=== PATIENT | male | born 1965 | race Caucasian/White ===

== ENCOUNTER 2017-12-24 16:25 | Emergency (ER) | payer OTHER ==
[~2017-12-24] VITALS: Ht 172.7 cm; Wt 86.2 kg
[2017-12-24] MEDS ORDERED: NACL 0.9% 1,000 ML IV ONE (16:27)
[2017-12-24 16:30] VITALS: BP_SYST 163
[2017-12-24] MEDS ORDERED: ONDANSETRON HCL 4 MG/2 ML VIAL IVP ONE (16:30)
[2017-12-24] MEDS ORDERED: MORPHINE 4 MG/ML INJ. SYRINGE IVP ONE ×2 (16:30→17:30)
--- NOTE | 2017-12-24 16:37 | NUR ---
Note shannan in ED - 12/24/17 at 1640 by KING Patient to ER bed 6 to [facility]ckenzie for evaluation. Side rails up. Report given to Marylou.
--- NOTE | 2017-12-24 16:39 | NUR ---
Patient to ER bed 6 to gown for evaluation. Side rails up. Report given to Marylou PÉREZ.
--- NOTE | 2017-12-24 16:40 | NUR ---
Pt complains of lower back pain that radiates to abdomen for two days. Pt states he has not had a bowel movement in two days. Pt denies pain/burning upon urination. N/V for two days, unable to keep anything down. denies fever. No other injuries/complaints per patient or noted. at bedside.
--- NOTE | 2017-12-24 16:45 | NUR ---
ER Dr. Robison at bedside examining patient.
--- NOTE | 2017-12-24 16:53 | NUR ---
Medications were given, pt tolerated well. No adverse reaction, will continue to monitor.
--- NOTE | 2017-12-24 17:00 | NUR ---
xray at patient bedside. Pt tolerated well.
--- NOTE | 2017-12-24 17:10 | NUR ---
Patient to radiology for CT scan in stable condition via gurney.
[2017-12-24 17:11] LABS: BASOPHILS % (AUTO) 0.3 % (0.0-2.0); EOSINOPHILS # (AUTO) 0.1 K/uL (0.0-0.4); EOSINOPHILS % (AUTO) 0.5 % (0.0-4.0); HEMOGLOBIN 13.1 g/dL (14.0-18.0); LYMPHOCYTES # (AUTO) 1.1 K/uL (1.0-5.5); LYMPHOCYTES % (AUTO) 11.1 % (20.5-51.5); MEAN CORPUSCULAR HEMOGLOBIN 21 pg (27-31); MEAN CORPUSCULAR HGB CONC 31 % (32-36); MEAN CORPUSCULAR VOLUME 67 fL (79.0-98.0); MONOCYTES # (AUTO) 0.8 K/uL (0.0-1.0); MONOCYTES % (AUTO) 8.3 % (1.7-9.3); NEUTROPHILS # (AUTO) 8.2 K/uL (1.8-7.7); NEUTROPHILS % (AUTO) 79.8 % (40.0-70.0); PLATELET COUNT (AUTO) 234 K/uL (130-430); RED BLOOD CELL COUNT(AUTO) 6.29 MIL/uL (4.2-6.2); RED CELL DISTRIBUTION WIDTH 14.3 % (9.0-15.0); WHITE BLOOD COUNT (AUTO) 10.2 K/uL (4.8-10.8)
--- NOTE | 2017-12-24 17:20 | NUR ---
Patient back from CT scan in stable condition via gurney.
[2017-12-24 17:27] LABS: INR 0.9 (0.80-1.20); PROTHROMBIN TIME 9.6 SECS (9.5-12.5)
[2017-12-24 17:30] LABS: CALCIUM 9.1 mg/dL (8.4-11.0); CREATININE 1.86 mg/dL (0.55-1.30); POTASSIUM 4.3 mmol/L (3.5-5.1); TOTAL BILIRUBIN 0.4 mg/dL (0.0-1.0)
[2017-12-24 18:00] LABS: BILIRUBIN,URINE NEGATIVE (NEGATIVE); BLOOD, URINE 3+ (NEGATIVE); CLARITY/URINE CLEAR (CLEAR); COLOR,URINE YELLOW (YELLOW); GLUCOSE,URINE NEGATIVE (NEGATIVE); KETONES,URINE NEGATIVE (NEGATIVE); LEUKOCYTE ESTERASE ,URINE NEGATIVE (NEGATIVE); NITRITE, URINE NEGATIVE (NEGATIVE); PROTEIN URINE TRACE (NEGATIVE); UROBILINOGEN,URINE 0.2 (0.2-1.0)
[2017-12-24 18:03] LABS: BACTERIA,URINE FEW /HPF (None Seen); MUCUS,URINE 2+ /LPF (None Seen); WBC,URINE 0-3 /HPF (0-3)
[2017-12-24 18:33] LABS: BARBITURATE, URINE NEGATIVE (NEG <=200); BENZODIAZEPINE, URINE NEGATIVE (NEG <=150); CANNABINOID, URINE POSITIVE (NEG <=50); COCAINE, URINE NEGATIVE (NEG <=150); METHAMPHETAMINES SCREEN,URINE NEGATIVE (NEG <=500); OPIATE, URINE POSITIVE (NEG <=100); PHENCYCLIDINE SCREEN,URINE NEGATIVE (NEG <=25); UR TRICYCLIC ANTIDEPRESSANTS NEGATIVE (NEG <=300); URINE AMPHETAMINE NEGATIVE (NEG <=500); URINE METHADONE NEGATIVE (NEG <=200); URINE OXYCODONE SCREEN NEGATIVE (NEG <=100); URINE PROPOXYPHENE SCREEN NEGATIVE (NEG <=300)
[2017-12-24 18:46] VITALS: BP_SYST 140
--- NOTE | 2017-12-24 18:46 | NUR ---
Patient given written and verbal discharge instructions and verbalizes understanding. ER MD discussed with patient the results and treatment provided. Patient in stable condition. ID arm band removed. IV catheter removed intact and dressing applied, no active bleeding. Rx of [place], Flomax, Zofran given. Patient educated on pain management and to follow up with PMD. Pain Scale 0. Opportunity for questions provided and answered. Medication side effect fact sheet provided.
== END 2017-12-24 18:46 | disposition home or self-care (01) ==
LOC: SED 16:25
DX: N20.0 Calculus of kidney (principal); N28.9 Disorder of kidney and ureter, unspecified; R03.0 Elevated blood-pressure reading, without diagnosis of hypertension
CPT/HCPCS: 36415; 71045; 74176; 80053; 80307; 81000; 82150; 82550; 83690; 84484; 85025; 85610; 85730; 93005; 96374; 96375; 96376; 99285; J2270; J2405; J7030

== ENCOUNTER 2021-05-06 09:52 | Emergency (ER) | payer OTHER ==
[~2021-05-06] VITALS: Ht 172.7 cm; Wt 86.2 kg
[2021-05-06 09:52] VITALS: BP_SYST 188
--- NOTE | 2021-05-06 09:52 | NUR ---
BROUGHT IN BY [facility] AND PLACED IN BED #8 AND TRIAGED. REPORT GIVEN TO RENE ATTEMPTED TO CALL PER PTS REQUEST AT [phone] JOAQUÍN, LEFT MESSAGE FOR HER TO RETURN CALL.
--- NOTE | 2021-05-06 10:07 | NUR ---
Pt. bib BLS post a slip and fall at [facility], pt. states he remembers slipping an then being on ground, denies LOC, has pain 8/10 to right shouder and surrounding areas, increase in pain with movement, pt. states bystanders stated he hit his head on fall, pt. has no recollection of how he landed and denies pain to head at this time but vision was initially blurry per pt.
[2021-05-06] MEDS: IBUPROFEN 800 MG TABLET PO ONE (10:18)
--- NOTE | 2021-05-06 10:18 | NUR ---
radiology at bedside for xray
--- NOTE | 2021-05-06 10:48 | NUR ---
notified Dr. Amaro pt. requesting something stronger for pain relief
[2021-05-06] MEDS: HYDROcodone/ACETAMIN 10-325 MG TAB PO ONE (10:52)
[2021-05-06] MEDS ORDERED: HYDR-3917 PO (11:19)
[2021-05-06] MEDS ORDERED: IBUP-1971 PO (11:19)
--- NOTE | 2021-05-06 11:30 | NUR ---
Patient given written and verbal discharge instructions and verbalizes understanding. ER DR. Amaro discussed with patient the results and treatment provided. Patient in stable condition. ID arm band removed. Rx of [place] anf Motrin given. Patient educated on pain management and to follow up with PMD. Pain Scale 5. Opportunity for questions provided and answered. Medication side effect fact sheet provided.
[2021-05-06 11:31] VITALS: BP_SYST 150
== END 2021-05-06 11:31 | disposition home or self-care (01) ==
LOC: SED 09:52
DX: S13.4XXA Sprain of ligaments of cervical spine, initial encounter (principal); S40.011A Contusion of right shoulder, initial encounter; S09.90XA Unspecified injury of head, initial encounter; W01.198A Fall on same level from slipping, tripping and stumbling with subsequent striking against other object, initial encounter; Y93.89 Activity, other specified; Y92.89 Other specified places as the place of occurrence of the external cause; Y99.8 Other external cause status
CPT/HCPCS: 70450-TC; 72125-TC; 73030; 76376; 99284